=== PATIENT | male | born 1955 | race Caucasian/White ===

== ENCOUNTER 2025-08-06 11:41 | Emergency (ER) | payer MEDICAID ==
[~2025-08-06] VITALS: Ht 170.2 cm; Wt 70.4 kg
[2025-08-06 12:38] VITALS: TEMP 98.2
[2025-08-06 13:16] LABS: PLATELET COUNT (AUTO) 166 K/uL (150-450); RED BLOOD CELL COUNT(AUTO) 5.27 MIL/uL (4.50-5.90); RED CELL DISTRIBUTION WIDTH 13.9 % (11.5-14.5); WHITE BLOOD COUNT (AUTO) 16.1 K/uL (4.5-11.0)
[2025-08-06 13:22] LABS: CALCIUM, TOTAL 9.2 mg/dL (8.8-10.5); CREATININE 0.99 mg/dL (0.60-1.30); GLOMERULAR FILTR. RATE CALC > 60 mL/min (>60); GLUCOSE,RANDOM 138 mg/dL (70-110); SODIUM SERUM 140 mmol/L (136-145); UREA NITROGEN, BLOOD 15 mg/dL (7-18)
[2025-08-06 13:25] LABS: COVID AG,FIA SOURCE NASAL SWAB
[2025-08-06 13:29] LABS: ASPARTATE AMINOTRANSFERASE 22.0 U/L (15-37); CREATINE KINASE, TOTAL ONLY 85.0 U/L (39-308); TOTAL PROTEIN, SERUM 7.4 g/dL (6.4-8.2)
[2025-08-06 13:33] LABS: TROPONIN I-HIGH SENSITIVITY 20 ng/L (<76)
[2025-08-06 14:01] LABS: SARS-COV2 (COVID) ANTIGEN,FIA Negative (Negative)
[2025-08-06 14:02] LABS: INFLUENZA TYPE A NEGATIVE FOR TYPE A (NEGATIVE); INFLUENZA TYPE B NEGATIVE FOR TYPE B (NEGATIVE)
[2025-08-06 14:30] VITALS: BP 193/97; PULSE 94; RESP 18; O2SAT 97
[2025-08-06 14:40] LABS: APPEARANCE,URINE CLEAR (CLEAR); GLUCOSE, URINE (UA) NEGATIVE (NEGATIVE); LEUKOCYTE ESTERASE ,URINE NEGATIVE (NEGATIVE); NITRATE,URINE NEGATIVE (NEGATIVE); OCCULT BLOOD,URINE TRACE (NEGATIVE); SPECIFIC GRAVITIY, URINE 1.023 (1.003-1.030)
[2025-08-06] MEDS ORDERED: AMLO-257 PO (14:41)
== END 2025-08-06 14:59 | disposition left against medical advice (07) ==
LOC: EMS 11:41
DX: S42.291A Other displaced fracture of upper end of right humerus, initial encounter for closed fracture (principal); I16.0 Hypertensive urgency; F17.210 Nicotine dependence, cigarettes, uncomplicated; Z20.822 Contact with and (suspected) exposure to COVID-19; W19.XXXA Unspecified fall, initial encounter; Y93.89 Activity, other specified; Y92.89 Other specified places as the place of occurrence of the external cause; Y99.8 Other external cause status
CPT/HCPCS: 29105; 71045; 80048; 80076; 81001; 82550; 83880; 84484; 85025; 85610; 85730; 87804; 93005; 99285; 36415-L1; 36415-TC